=== PATIENT | male | born 1990 | race Caucasian/White ===

== ENCOUNTER 2016-10-14 20:17 | Emergency (ER) | payer OTHER ==
[~2016-10-14] VITALS: Ht 188 cm; Wt 70.0 kg
[2016-10-14 20:19] VITALS: BP 127/87; PULSE 84; RESP 16; TEMP 97.8; O2SAT 97
--- NOTE | 2016-10-14 20:56 | PD ---
HPI Chief Complaint: ENT Complaint Time Seen by Provider: 20:54 Travel History International Travel<30 days: No Contact w/Intl Traveler<30days: No Traveled to known affect area: No History of Present Illness HPI 26-year-old male presents to emergency department for evaluation of a nose injury sustained when he was struck in the nose by a racquetball approximately one hour ago. Patient states he did have some bleeding from his nose but this resolved on its own. Reports a moderate pain. No difficulty breathing. He did not lose consciousness. He reports no focal deficits or weakness. No blurred vision or pain with eye movement. No other symptoms to report. PFSH Past Medical History Medical History: Denies Significant Hx Tetanus Vaccination: Unknown Influenza Vaccination: No Past Surgical History Other Surgery: Yes (DEVIATED SEPTUM REPAIR 2010) Social History Alcohol Use: Yes (ONCE WEEKLY) Tobacco Use: No Substance Use: No Allergies-Medications (Allergen,Severity, Reaction): Coded Allergies: Morphine (Verified Allergy, Unknown, 10/14/16) Reported Meds & Prescriptions Reported Meds & Active Scripts Active No Active Prescriptions or Reported Medications Review of Systems Except as stated in HPI: all other systems reviewed are Neg Physical Exam Narrative GENERAL: Well-nourished, well-developed male patient, ambulatory and in no acute distress SKIN: Warm and dry. HEAD: Normocephalic. Mild ecchymosis and swelling of the nasal bridge. No obvious deformities. EYES: No scleral icterus. No injection or drainage. EOMI. PERRL ENT: Mucosa pink and moist. No erythema or exudates. No uvular edema. No uvular , palatal, or tonsillar deviation. Airway patent. Nasal turbinates appear normal without nasal blood, purulent drainage or septal hematoma. NECK: Supple, trachea midline. No JVD or lymphadenopathy. CARDIOVASCULAR: Regular rate and rhythm without murmurs, gallops, or rubs. RESPIRATORY: Breath sounds equal bilaterally. No accessory muscle use. Data Data Last Documented VS Vital Signs Date Time Temp Pulse Resp B/P Pulse Ox O2 Delivery O2 Flow Rate FiO2 10/14/16 20:19 97.8 84 16 127/87 97 Room Air MDM Medical Decision Making Medical Screen Exam Complete: Yes Emergency Medical Condition: Yes Medical Record Reviewed: Yes Differential Diagnosis Nasal fracture versus contusion versus dislocation Narrative Course 26-year-old male presents to the emergency department for evaluation following an injury sustained when he was struck in the nose with a racquetball. Patient appears without distress. There is mild swelling of the nasal bridge. No septal hematoma. EOMI. I have offered reassurance. I discussed the patient with my attending physician. I explained the patient that his nose may be broken but his naris are patent, he has no septal hematoma, there is no emergent need for CT imaging to discover this at this time. He verbalizes understanding. He is counseled on care. He agrees to return immediately with any acute worsening of symptoms. Diagnosis Primary Impression: Nose injury Qualified Code: S09.92XA - Nose injury, initial encounter Referrals: Ear / Nose / Throat Specialist Primary Care Physician Patient Instructions: General Instructions, Nasal Fracture (ED) Additional Instructions: Ice to the affected area, no longer than 20 minutes at a time Follow up with your ear, nose, and throat specialist Tylenol or ibuprofen asked her package as needed for pain Return immediately to the emergency department with any acute worsening of symptoms Med/Other Pt SpecificInfo: No Change to Meds Scripts No Active Prescriptions or Reported Meds Disposition: 01 DISCHARGE HOME Condition: Stable UrszulaFina GILBERT Oct 14, 2016 20:56
== END 2016-10-14 21:18 | disposition home or self-care (01) ==
LOC: NEPB 20:17
DX: S09.92XA Unspecified injury of nose, initial encounter (principal); W22.8XXA Striking against or struck by other objects, initial encounter
CPT/HCPCS: 99283